=== PATIENT | female | born 1940 | race Hispanic/Latino ===

== ENCOUNTER 2017-08-19 06:49 | Day surgery (SDC) | payer MEDICARE, BC ==
[2017-08-11 18:20] VITALS: BMI 21.6
[2017-08-19] MEDS ORDERED: Simethicone 40 mg/0.6 ml Liquid (30 ml) ONE (07:56)
[2017-08-19] MEDS ORDERED: Propofol 10 mg/ml Inj (20 ML) ONE ×2 (08:09→08:47)
[2017-08-19] MEDS ORDERED: Sodium Chloride 0.9% 1,000 ML IV SCH (09:15)
[2017-08-19 09:21] VITALS: RESP 16; O2SAT 99
[2017-08-19 09:50] VITALS: BP 142/70; PULSE 68; TEMP 98
== END 2017-08-19 10:30 | disposition home or self-care (01) ==
LOC: ENDO 06:49
PROVIDERS: ATTEND Specialist
DX: D12.3 Benign neoplasm of transverse colon (principal); K57.30 Diverticulosis of large intestine without perforation or abscess without bleeding; K64.8 Other hemorrhoids; I10 Essential (primary) hypertension; M19.90 Unspecified osteoarthritis, unspecified site; Z12.11 Encounter for screening for malignant neoplasm of colon
CPT/HCPCS: 45380; 88305; J2704; J7040